=== PATIENT | female | born 1995 | race Caucasian/White ===

== ENCOUNTER 2017-06-16 12:52 | Emergency (ER) | payer MEDICAID ==
[~2017-06-16] VITALS: Ht 167.6 cm; Wt 55.8 kg
[2017-06-16 13:36] VITALS: BP 101/59
== END 2017-06-16 16:38 | disposition left against medical advice (07) ==
LOC: ER 12:57
DX: R11.2 Nausea with vomiting, unspecified (principal); Z53.21 Procedure and treatment not carried out due to patient leaving prior to being seen by health care provider